=== PATIENT | male | born 1945 | race Caucasian/White ===

== ENCOUNTER 2019-09-09 14:26 | Emergency (ER) | payer OTHER, SELFPAY ==
[2019-09-09 14:35] VITALS: BP 144/89; PULSE 62; RESP 12; TEMP 37.1; O2SAT 97; BMI 29.0
[2019-09-09 15:00] VITALS: BP 172/87; PULSE 62; RESP 18; O2SAT 98
--- NOTE | 2019-09-09 15:09 | XR_ITS ---
WS: [id number] PORTABLE CHEST HISTORY: SOB COMPARISON: None available. Lungs are clear and well expanded. No pleural effusion or pneumothorax. Cardiac size: Normal. Mediastinum/Aorta: Normal mediastinum. No osseous abnormality seen. XR/XR chest 1V portable [id number] IMPRESSION: Unremarkable portable chest.
--- NOTE | 2019-09-09 15:09 | ECG_ITS ---
[facility] Test Date: 2019-09-09 Pat Name: Jem Garcia Department: Room: Gender: Male Bilingual Trainer: luz elena : 1945 Requested By: Hansa Locke Order Number: [id number] Caroline MD: Jose Car M.D. Measurements Intervals [place] Rate: 57 P: 12 MT: 164 QRS: -11 QRSD: 86 T: 20 QT: 399 QTc: 392 Interpretive Statements SINUS BRADYCARDIA No previous ECG available for comparison Electronically Signed On 09-10-2019 16:24:52 CDT by Jose Car M.D. [id number]
[2019-09-09 15:49] LABS: Basophils % 0.4 %; Eosinophils # 0.2 10^3/uL (0.0-0.8); Eosinophils % 2.2 %; Hematocrit 46.7 % (42.0-52.0); Hemoglobin 15.6 g/dL (11.7-16.6); Lymphocytes # 1.7 10^3/uL (0.8-4.8); Lymphocytes % 23.1 %; Mean Corpuscular HGB Conc 33.4 g/dL (30.0-36.0); Mean Corpuscular Hemoglobin 32.7 pg (28.0-34.0); Mean Corpuscular Volume 97.9 fL (80-94); Mean Platelet Volume 9.9 fL (7.4-10.4); Monocytes # 0.6 10^3/uL (0.2-0.9); Monocytes % 7.6 %; Neutrophils % 66.3 %; Nucleated Red Blood Cells % 0 %; Platelet Count 151 10^3/cmm (130-400); Red Blood Count 4.77 10^6/uL (4.1-5.3); Red Cell Distribution Width 12.3 % (12.1-15.1); White Blood Count 7.2 10^3/uL (4.0-10.0)
--- NOTE | 2019-09-09 16:03 | W.ED.SOB ---
HPI - SOB/Dyspnea General: Chief Complaint: Shortness of Breath/Dyspnea Stated Complaint: sob Time Seen by Provider: 09/09/19 15:14 History of Present Illness: HPI Narrative: 74-year-old male presents emergency room complaining of shortness of breath for the last months. States very mild he does not have any chest pain today and he usually does not at times he has had a very mild chest pain or discomfort with it. He has not had any fever he has had a little bit of cough but it has been not really significantly productive. He has had a little slight swelling in his legs. He has not had any history of coronary artery disease not recently had any respiratory symptoms not been around anybody with COVID that he knows of. States several years ago he had a stress test which was negative. Patient is quite convinced that this is all due to the atenolol that he takes. He was directed here by his primary care doctor. MD elicited complaint: shortness of breath and cough Pertinent past history: other (Hypertension) Onset (ago): month(s) (1) Timing: intermittent Severity: mild Exacerbating factors: nothing Relieving factors: nothing Associated symptoms: Reports no associated symptoms; Deny abdominal pain, chest pain, fever(s), nausea, orthopnea or vomiting Treatment prior to arrival: none Review of Systems Const: Denies: fever(s), chills, body aches, change in appetite, fatigue or malaise ENMT: Denies: throat pain, ear or mastoid pain, nasal discharge or nasal congestion Card: Denies: chest pain, edema, dyspnea on exertion or orthopnea Resp: Denies: dyspnea, productive cough or non-productive cough GI: Denies: abdominal pain, nausea, vomiting, hematemesis, coffee ground emesis, diarrhea, constipation, bloating, hematochezia or melena : Denies: flank pain, dysuria, urinary frequency or urinary urgency Skin/Breast: Denies: rash or pruritus PFSH ED PFSH: Medical History (Updated 09/09/19 @ 16:53 by Darron Hughes DO) BPH (benign prostatic hyperplasia) Hypertension Surgical History (Updated 09/09/19 @ 16:09 by Darron Hughes DO) No history of previous surgery Social History (Updated 09/09/19 @ 16:09 by Darron Hughes DO) Smoking and tobacco status: never smoked Alcohol intake: former Year of sobriety/quit date alcohol: 22 years Former alcohol use details: Heavy per patient Physical Exam Const: COMMON NORMALS: no acute distress GENERAL APPEARANCE: cooperative and comfortable ORIENTATION/CONSCIOUSNESS: Yes awake, Yes oriented to person, Yes oriented to place and Yes oriented to time HENMT: COMMON NORMALS: normocephalic, atraumatic, hearing grossly normal bilaterally, external ears normal and oropharynx normal HEAD & SCALP: normocephalic and atraumatic EXTERNAL EAR: Yes external ears normal Eye: COMMON NORMALS: Equal, round and reactive pupils present, EOMs intact bilaterally, conjunctivae normal and no scleral icterus CONJUNCTIVA: Yes conjunctivae normal PUPIL: Yes Equal, round and reactive pupils present Neck/C-Spine: COMMON NORMALS: full ROM, no lymphadenopathy, supple and no JVD Lymph: LYMPHATIC: no lymphadenopathy noted and no lymphedema noted Resp: COMMON NORMALS: normal respiratory effort, No retractions, No use of accessory muscles and clear to auscultation bilaterally AUSCULTATION: clear to auscultation bilaterally Cardio: COMMON NORMALS: no JVD, regular rate, regular rhythm and No murmurs present (Cardio) RATE: regular rate RHYTHM: regular rhythm GI: COMMON NORMALS: Soft to palpation and No hepatosplenomegaly present AUSCULTATION: Yes normoactive bowel sounds PALPATION: Yes Soft to palpation, No Tenderness to palpation present (GI), No Guarding due to palpation present (GI) and Yes No hepatosplenomegaly present Extremity: COMMON NORMALS: normal to inspection, capillary refill normal, no clubbing, cyanosis or edema, no calf tenderness and no pedal edema Neuro: SENSORIUM/ORIENTATION: Yes oriented to person, Yes oriented to place and Yes oriented to time Skin: COMMON NORMALS: no rashes or lesions noted GENERAL SKIN EXAM: no rashes or lesions noted Course Vital Signs: Vital signs: Vital Signs Temperature 98.7 F 09/09/19 14:35 Pulse Rate 64 09/09/19 18:12 Respiratory Rate 18 09/09/19 18:12 Blood Pressure 165/84 09/09/19 18:12 Pulse Oximetry 98 09/09/19 18:12 MDM - SOB/Dyspnea MDM Narrative: Medical decision making narrative: Serial enzymes negative. Will set up outpatient stress test. Patient had questions concerning blood pressure at this point his blood pressure is not significantly elevated make changes in the emergency room but did recommend him to follow-up with his primary care doctor he is wanting to get off the atenolol and recommend that he follow with his primary care doctor for adjustments on that. Lab Data: Labs: Lab Results 09/09/19 09/09/19 09/09/19 Range/Units 15:40 15:40 15:40 WBC 7.2 (4.0-10.0) 10^3/ uL RBC 4.77 (4.1-5.3) 10^6/u L Hgb 15.6 (11.7-16.6) g/dL Hct 46.7 (42.0-52.0) % MCV 97.9 H (80-94) fL MCH 32.7 (28.0-34.0) pg MCHC 33.4 (30.0-36.0) g/dL RDW 12.3 (12.1-15.1) % Plt Count 151 (130-400) 10^3/c mm MPV 9.9 (7.4-10.4) fL Neut % (Auto) 66.3 % Lymph % (Auto) 23.1 % Hart % (Auto) 7.6 % Eos % (Auto) 2.2 % Baso % (Auto) 0.4 % Neut # (Auto) 4.80 (1.8-7.7) 10^3/u L Lymph # (Auto) 1.7 (0.8-4.8) 10^3/u L Hart # (Auto) 0.6 (0.2-0.9) 10^3/u L Eos # (Auto) 0.2 (0.0-0.8) 10^3/u L Baso # (Auto) 0.0 (0.0-0.1) 10^3/u L Nucleated RBC % (a uto) 0 % Nucleated RBCs # 0.0 /100WBC Sodium 138 (136-145) mmol/L Potassium 4.1 (3.5-5.1) mmol/L Chloride 105 (98-107) mmol/L Carbon Dioxide 24 (22-29) mmol/L Anion Gap 13.1 (5-19) BUN 15 (8-23) mg/dL Creatinine 0.7 (0.7-1.2) mg/dL Glucose 95 (65-115) mg/dL Calculated Osmolal ity 282 L (285-295) mOsm/k g Calcium 8.8 (8.5-10.5) mg/dL Total Bilirubin 0.8 (0.15-1.2) mg/dL AST 28 (0-40) U/L ALT 43 H (0-41) U/L Alkaline Phosphata se 91 (40-130) IU/L Troponin T Baselin e 7 (0-15) ng/L Troponin T 120 Min [place] (0-15) ng/L Delta Troponin T (0-10) ABS# NT-Pro-B Natriuret Pep 104 (0-125) pg/mL Total Protein 6.6 (6.6-8.7) g/dL Albumin 4.3 (3.5-5.2) g/dL Globulin 2.3 (1.3-4.6) g/dL 09/09/19 Range/Units 17:35 WBC (4.0-10.0) 10^3/ uL RBC (4.1-5.3) 10^6/u L Hgb (11.7-16.6) g/dL Hct (42.0-52.0) % MCV (80-94) fL MCH (28.0-34.0) pg MCHC (30.0-36.0) g/dL RDW (12.1-15.1) % Plt Count (130-400) 10^3/c mm MPV (7.4-10.4) fL Neut % (Auto) % Lymph % (Auto) % Hart % (Auto) % Eos % (Auto) % Baso % (Auto) % Neut # (Auto) (1.8-7.7) 10^3/u L Lymph # (Auto) (0.8-4.8) 10^3/u L Hart # (Auto) (0.2-0.9) 10^3/u L Eos # (Auto) (0.0-0.8) 10^3/u L Baso # (Auto) (0.0-0.1) 10^3/u L Nucleated RBC % (a uto) % Nucleated RBCs # /100WBC Sodium (136-145) mmol/L Potassium (3.5-5.1) mmol/L Chloride (98-107) mmol/L Carbon Dioxide (22-29) mmol/L Anion Gap (5-19) BUN (8-23) mg/dL Creatinine (0.7-1.2) mg/dL Glucose (65-115) mg/dL Calculated Osmolal ity (285-295) mOsm/k g Calcium (8.5-10.5) mg/dL Total Bilirubin (0.15-1.2) mg/dL AST (0-40) U/L ALT (0-41) U/L Alkaline Phosphata se (40-130) IU/L Troponin T Baselin e (0-15) ng/L Troponin T 120 Min [place] 7.91 (0-15) ng/L Delta Troponin T 0.91 (0-10) ABS# NT-Pro-B Natriuret Pep (0-125) pg/mL Total Protein (6.6-8.7) g/dL Albumin (3.5-5.2) g/dL Globulin (1.3-4.6) g/dL Discharge Plan Discharge Patient Disposition: Home, Self-Care Clinical Impression: BOLIVAR (dyspnea on exertion), Hypertension Condition: Stable Prescriptions: No Action Apple Cider Vinegar Liquid 3 tsp PO BID RF: 0 Aspir-81 81 mg Tablet,Delayed Release (Dr/Ec) 81 mg PO DAILY RF: 0 atenolol 50 mg Tablet 25 mg PO DAILY RF: 0 garlic Tablet See Rx Instructions .ROUTE .COMPLEX RF: 0 PreserVision AREDS-2 [id number]-[id number]-mg Capsule 1 tab PO BID RF: 0 Fish Oil 1 cap PO BID RF: 0 Zantac 150 mg PO QPM RF: 0 Referrals: Jose Daniel Vazquez [Primary Care Provider] - Discharge Diet: Usual diet Discharge Activity: Limit activity as instructed Activity Restrictions/Additional Instructions: Case management will call to schedule sestamibi stress test Discharge Date/Time: 09/09/19 18:13 Coding Level of Care Code ED Mill Controller for [place] Fwd Exam Comprehensive
[2019-09-09 16:13] LABS: Troponin(5th) Baseline 7 ng/L (0-15)
[2019-09-09 16:22] LABS: Alanine Aminotransferase 43 U/L (0-41); Albumin Level 4.3 g/dL (3.5-5.2); Alkaline Phosphatase 91 IU/L (40-130); Anion Gap 13.1 (5-19); Aspartate Amino Transferase 28 U/L (0-40); Blood Urea Nitrogen 15 mg/dL (8-23); Calcium 8.8 mg/dL (8.5-10.5); Carbon Dioxide 24 mmol/L (22-29); Chloride 105 mmol/L (98-107); Creatinine Clr Calc Pharmacy 83.7472; Globulin 2.3 g/dL (1.3-4.6); Glucose 95 mg/dL (65-115); NT Pro B Type Natriuretic Pept 104 pg/mL (0-125); Osmolality Calculated 282 mOsm/kg (285-295); Potassium 4.1 mmol/L (3.5-5.1); Sodium 138 mmol/L (136-145); Total Bilirubin 0.8 mg/dL (0.15-1.2); Total Protein 6.6 g/dL (6.6-8.7)
[2019-09-09 16:45] VITALS: BP 157/84
--- NOTE | 2019-09-09 17:09 | ECG_ITS ---
[facility] Test Date: 2019-09-09 Pat Name: Jem Garcia Department: Room: Gender: Male Housing Inspectors: : 1945 Requested By: Hansa Locke Order Number: [id number] Caroline MD: Jose Car M.D. Measurements Intervals [place] Rate: 55 P: 40 WA: 168 QRS: 21 QRSD: 82 T: 49 QT: 411 QTc: 393 Interpretive Statements SINUS BRADYCARDIA Compared to ECG 09/09/2019 14:49:40 No significant changes Electronically Signed On 09-10-2019 16:30:42 CDT by Jose Car M.D. [id number]
[2019-09-09 17:56] LABS: Troponin 5 2HR 7.91 ng/L (0-15); Troponin 5 2HR Delta 0.91 ABS# (0-10)
[2019-09-09 18:12] VITALS: BP 165/84; PULSE 64; RESP 18; O2SAT 98
--- NOTE | 2019-09-11 13:19 | DCPLANNER ---
Addendum entered by Stacie Stinson 09/13/19 10:59: Patient has [facility] and will need to be seen at [facility]. residential case manager called [facility], spoke with Delma, gave her the patients information, supervisor case loading was told that patients information would be printed and reviewed. Clinic will call patient with appointment information. residential case manager called May with [facility], gave her patients information so a consult could be placed. Original Note: residential case manager had message to schedule an outpatient stress test for patient. residential case manager had order signed, and faxed order to centralized scheduling. residential case manager will call for appointment information.
--- NOTE | 2019-09-26 08:23 | DCPLANNER ---
Patient had a follow up appointment scheduled for 09.19.19 with [facility]. Patient did attend appointment.
== END 2019-09-09 18:13 | disposition home or self-care (01) ==
PROVIDERS: Physician Assistant; Emergency Provider Family Medicine; PCP Family Medicine
DX: R06.00 Dyspnea, unspecified (principal); I10 Essential (primary) hypertension; Z79.82 Long term (current) use of aspirin
CPT/HCPCS: 12345; 36415; 71045; 80053; 83880; 84484; 85025; 93005; 99282; 99283

== ENCOUNTER 2020-10-09 10:15 | Outpatient (CLI) | payer OTHER, SELFPAY ==
--- NOTE | 2020-10-09 10:33 | US_ITS ---
WS: [id number] ULTRASOUND ABDOMEN LIMITED CLINICAL INFORMATION: ELEVATED LIVER ENZYMES COMPARISON: None. FINDINGS: Liver Size: Mild hepatomegaly. Craniocaudal length: 15.3 cm. Echogenicity: Diffuse fatty infiltration Surface nodularity: None. Mass (size and location): None. Bile ducts Intrahepatic ducts: Normal. Common bile duct diameter: 0.4 cm. Gallbladder Normal. Gallstones: None. Gallbladder sludge: None. Gallbladder wall thickening: None. Pericholecystic fluid: None. Sonographic Baxter sign: Absent. Pancreas Normal as visualized. Right kidney: Incidental simple right renal cyst measuring 2.2 x 2.7 x 2.2 cm Hydronephrosis: None. Size: 11.1 cm x 4.4 cm x 5.7 cm. Abdominal aorta and IVC Visualized portions are normal. Ascites: None. US/US abdomen limited [id number] IMPRESSION: 1. Hepatomegaly with diffuse fatty infiltration. 2. Normal gallbladder. Normal common bile duct. 3. No hydronephrosis in right kidney. 4. Incidental simple right renal cyst measuring 2.2 x 2.7 x 2.2 cm
== END 2020-10-09 10:16 | disposition home or self-care (01) ==
PROVIDERS: PCP Family Medicine; Visit Provider Family Medicine
DX: R94.5 Abnormal results of liver function studies (principal); R16.0 Hepatomegaly, not elsewhere classified; K76.0 Fatty (change of) liver, not elsewhere classified; N28.1 Cyst of kidney, acquired
CPT/HCPCS: 76705

== ENCOUNTER → 2021-03-09 13:45 | Outpatient (BNVA) | payer OTHER, SELFPAY | PROVIDERS: PCP Family Medicine; Visit Provider Family Medicine | DX: I10 Essential (primary) hypertension (principal); E55.9 Vitamin D deficiency, unspecified; Z13.220 Encounter for screening for lipoid disorders; Z13.6 Encounter for screening for cardiovascular disorders | CPT/HCPCS: 80053; 80061; 82652; 86803 ==

== ENCOUNTER → 2021-03-17 17:10 | Outpatient (BNVA) | payer OTHER, SELFPAY | PROVIDERS: PCP Family Medicine; Visit Provider Family Medicine | DX: I10 Essential (primary) hypertension (principal); Z13.220 Encounter for screening for lipoid disorders; Z13.6 Encounter for screening for cardiovascular disorders | CPT/HCPCS: 80053; 80061 ==

== ENCOUNTER → 2021-11-10 15:23 | Outpatient (BNVA) | payer OTHER, SELFPAY | PROVIDERS: PCP Family Medicine; Visit Provider Family Medicine | DX: J44.9 Chronic obstructive pulmonary disease, unspecified (principal); I10 Essential (primary) hypertension; J30.9 Allergic rhinitis, unspecified; E55.9 Vitamin D deficiency, unspecified; K21.9 Gastro-esophageal reflux disease without esophagitis; N40.1 Benign prostatic hyperplasia with lower urinary tract symptoms; N52.9 Male erectile dysfunction, unspecified; E78.2 Mixed hyperlipidemia; Z12.5 Encounter for screening for malignant neoplasm of prostate | CPT/HCPCS: 80053; 80061; 84153; 85025 ==

== ENCOUNTER → 2022-10-20 14:17 | Outpatient (BNVA) | payer OTHER, SELFPAY | PROVIDERS: PCP Family Medicine; Visit Provider Family Medicine | DX: E55.9 Vitamin D deficiency, unspecified (principal); N40.1 Benign prostatic hyperplasia with lower urinary tract symptoms; Z12.5 Encounter for screening for malignant neoplasm of prostate; I10 Essential (primary) hypertension; E78.2 Mixed hyperlipidemia; J44.9 Chronic obstructive pulmonary disease, unspecified; B19.20 Unspecified viral hepatitis C without hepatic coma | CPT/HCPCS: 80053; 80061; 82652; 83721; 83735; 84153; 85025; 86803; 87522 ==

== ENCOUNTER 2023-01-23 11:51 | Outpatient (CLI) | payer OTHER, SELFPAY ==
--- NOTE | 2023-01-23 13:15 | USCV_ITS ---
Jem Garcia Age: 78 Gender: M : 1945 Exam Date: 01/23/2023 12:17 Ordering Phys: Mela Vazquez MD Technologist: CT Exam Location: [facility] [place] Indication: Essential HTN BP: 118 / 80 HR: 62 Rhythm: Sinus Technical Quality: Adequate MEASUREMENTS (Male / Female) Normal Values 2D ECHO LVOT Diameter 2.0 cm LV Ejection Fraction MOD 2C 64.2 % LV Ejection Fraction 2C AL 62.6 % LA Diameter 4.2 cm Aorta at Sinotubular Diameter 3.1 cm M-MODE Aortic Annulus Diameter 2.8 cm LA Ao Ratio MM 1.5 MV E Point Septal Separation 0.9 cm DOPPLER AV Peak Velocity 118.0 cm/s LVOT Peak Velocity 99.0 cm/s AV Area Cont Eq vti 3.7 cm squared AV Area Cont Eq pk 2.7 cm squared MV E' Velocity 8.0 cm/s TR Peak Velocity 233.0 cm/s TR Peak Gradient 21.7 mmHg TV Peak E Velocity 68.0 cm/s Right Atrial Pressure 3.0 mmHg Pulmonary Artery Systolic Pressu 24.7 mmHg PV Peak Velocity 106.0 cm/s FINDINGS Left Ventricle Normal left ventricular size, systolic function with no regional wall motion abnormalities. Left ventricular ejection fraction is estimated at 60 %. Normal diastolic function. Right Ventricle Normal right ventricular size and systolic function. Right ventricular systolic pressure 24.7 mmHg. Right Atrium Normal right atrial size. Left Atrium Normal left atrial size. Mitral Valve Structurally normal mitral valve. No mitral valve stenosis. No mitral valve regurgitation. Aortic Valve Structurally normal trileaflet aortic valve. No aortic valve stenosis. No aortic valve regurgitation. Tricuspid Valve Structurally normal tricuspid valve. No tricuspid valve stenosis. Trace tricuspid valve regurgitation. Pulmonic Valve Pulmonic valve not well visualized. No pulmonary valve stenosis. No pulmonary valve regurgitation. Pericardium No pericardial effusion. Aorta Normal size aortic root and proximal ascending aorta. IVC Inferior vena cava not visualized. CONCLUSIONS 1. Normal left ventricular size, systolic function and wall thickness, with no regional wall motion abnormalities. Left ventricular ejection fraction is estimated at 60 %. Normal diastolic function. 2. Normal pulmonary artery pressure. 3. No significant valvular abnormality. Sharron Escoto MD (Electronically Signed) Final Date: 27 January 2023 12:43 S
== END 2023-01-23 11:52 | disposition home or self-care (01) ==
LOC: RAD 11:54
PROVIDERS: PCP Family Medicine; Visit Provider Family Medicine
DX: I10 Essential (primary) hypertension (principal); R60.0 Localized edema
CPT/HCPCS: 93306

== ENCOUNTER → 2023-03-27 10:01 | Outpatient (BNVA) | payer OTHER, SELFPAY | PROVIDERS: PCP Family Medicine; Referring Provider Family Medicine; Visit Provider Internal Medicine Cardiovascular Disease | DX: I10 Essential (primary) hypertension (principal); E78.2 Mixed hyperlipidemia; K70.0 Alcoholic fatty liver; R60.9 Edema, unspecified; Z87.891 Personal history of nicotine dependence | CPT/HCPCS: 99203 ==

== ENCOUNTER → 2023-10-18 14:25 | Outpatient (BNVA) | payer OTHER, SELFPAY | PROVIDERS: PCP Family Medicine; Visit Provider Family Medicine | DX: I10 Essential (primary) hypertension; Z12.5 Encounter for screening for malignant neoplasm of prostate | CPT/HCPCS: 80053; 80061; 83880; 85651; 86038; 86140; G0103 ==

== ENCOUNTER → 2024-02-08 08:05 | Outpatient (BNVA) | payer OTHER, SELFPAY | PROVIDERS: PCP Family Medicine; Referring Provider Family Medicine; Visit Provider Specialist | DX: R20.0 Anesthesia of skin (principal); G56.03 Carpal tunnel syndrome, bilateral upper limbs | CPT/HCPCS: 95911 ==

== ENCOUNTER → 2024-07-17 09:37 | Outpatient (BNVA) | payer OTHER, SELFPAY | PROVIDERS: PCP Family Medicine; Visit Provider Student in an Organized Health Care Education/Training Program | DX: G56.03 Carpal tunnel syndrome, bilateral upper limbs (principal) | CPT/HCPCS: 73130; 99204 ==

== ENCOUNTER → 2024-10-15 13:08 | Outpatient (BNVA) | payer OTHER, SELFPAY | PROVIDERS: PCP Family Medicine; Visit Provider Family Medicine | DX: I10 Essential (primary) hypertension (principal); E78.2 Mixed hyperlipidemia; K70.0 Alcoholic fatty liver; Z12.5 Encounter for screening for malignant neoplasm of prostate; E55.9 Vitamin D deficiency, unspecified; R53.83 Other fatigue | CPT/HCPCS: 80053; 80061; 82652; 85025; G0103 ==

== ENCOUNTER → 2024-10-16 10:11 | Outpatient (BNVA) | payer OTHER, SELFPAY | PROVIDERS: PCP Family Medicine; Visit Provider Student in an Organized Health Care Education/Training Program | DX: G56.03 Carpal tunnel syndrome, bilateral upper limbs (principal) | CPT/HCPCS: 99214 ==

== ENCOUNTER 2024-11-08 08:16 | Outpatient (CLI) | payer OTHER, SELFPAY ==
--- NOTE | 2024-11-08 08:45 | US_ITS ---
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 Normal size liver. Coarse echotexture and attenuation from hepatic steatosis. The entire liver is not well seen. Portal Vein: Normal hepatopetal flow with monophasic waveform. Gallbladder: Normally distended gallbladder with no stones or wall thickening. CBD: 0.3 cm Pancreas: Not visualized. Right kidney: 11.2 cm x 4.6 x 5.4 cm. Cortex:1.2 cm. Normal size kidney. No hydronephrosis. Small cluster of cysts mid kidney 3.0 x 1.9 x 2.5 cm. No solid mass. Left kidney: 11.3 cm x 4.6 cm x 6.1 cm. Cortex: 1.2 cm. Normal size kidney. No hydronephrosis. Several cortical cysts are identified. The largest measures 1.3 x 1.7 x 1.4 cm in the superior pole. Spleen: 9.0 cm. Normal size and echogenicity. Aorta and IVC: Unremarkable abdominal aorta and IVC. US/US abdomen complete* [id number] Impression: 1. Normal size liver with moderate hepatic steatosis. 2. Negative gallbladder. 3. Normal size kidneys with bilateral renal cysts.
== END 2024-11-08 08:17 | disposition home or self-care (01) ==
LOC: RAD 08:19
PROVIDERS: PCP Family Medicine; Visit Provider Family Medicine
DX: F10.21 Alcohol dependence, in remission (principal); K70.0 Alcoholic fatty liver
CPT/HCPCS: 76700

== ENCOUNTER 2024-11-22 06:04 | Day surgery (SDC) | payer OTHER, SELFPAY ==
[2024-11-22] VITALS (7 sets, daily range): BP systolic 102–152; BP diastolic 58–83; PULSE 62–74; RESP 14–18; TEMP 35.9–36.8; O2SAT 90–97; BMI 27.4
--- NOTE | 2024-11-22 06:10 | ANES.PREANE2 ---
Pre-Anesthetic Assessment Height/Weight: Height 5 ft 6 in Preop Diagnosis: Carpal tunnel syndrome Operation Date: 11/22/24 07:00 Proposed Procedures p LEFT Carpal Tunnel Release(Left) - Rangel Gutiérrez DO Was Beta Margarito taken within 24 hours: N/A Was Clonidine taken within 24 hours: N/A Social No alcohol and No tobacco Exam alert, oriented x 3, clear to auscultation bilaterally and regular rate & rhythm Airway Submandibular: within normal limits Cervical ROM: within normal limits Mallampati: Class III Dentition: full Anesthetic Plan ASA status: 3 Anesthesia: MAC Other: No prior issues with anesthesia NPO since yesterday evening History of GERD, COPD Hypertension on amlodipine. Preop BP 152/83 Labs reviewed from 10/15/2024 and acceptable for procedure today Echo 2022 showing EF of 60% with no RWMA Plan for MAC anesthesia with local via surgeon Medications/Allergies Home Medications ?Medication ?Instructions ?Recorded ?Confirmed ?Last Taken ?Type Apple Cider Vinegar Liquid 3 tsp PO BID 09/09/19 11/22/24 Unknown History garlic 2 tab PO DAILY 09/09/19 11/22/24 11/21/24 History omega 0-dns-hqv-fish oil 1,000 mg 1 cap PO BID 90 days #180 caps 10/20/22 11/22/24 Unknown Rx (120 mg-180 mg) capsule (Fish Oil) vit C 250 mg-vit E 90 mg-zinc 40 1 tab PO BID 90 days #180 caps 10/18/23 11/22/24 11/21/24 Rx mg-copper 1 pg-exknwh-cvjtxx capsule (PreserVision AREDS-2) docusate sodium 100 mg capsule 100 mg PO BID #180 caps 03/18/24 11/22/24 11/21/24 Rx albuterol sulfate 90 mcg/actuation 2 puff inhalation Q6H PRN 10/15/24 11/22/24 Unknown Rx aerosol inhaler shortness of breath or wheezing #8.5 grams amlodipine 5 mg tablet 5 mg PO BID 90 days #180 tabs 10/15/24 11/22/24 11/22/24 Rx cetirizine 10 mg capsule 10 mg PO DAILY 90 days #90 caps 10/15/24 11/22/24 11/21/24 Rx cholecalciferol (vitamin D3) 25 25 mcg PO DAILY 90 days #90 tabs 10/15/24 11/22/24 11/21/24 Rx mcg (1,000 unit) tablet clobetasol 0.05 % topical cream 1 applic topical DAILY #60 grams 10/15/24 11/22/24 11/21/24 Rx ibuprofen 200 mg capsule 200 mg PO Q6H PRN Pain 10/15/24 11/22/24 Unknown History turmeric 400 mg capsule 400 mg PO DAILY 10/15/24 11/22/24 11/21/24 History vitamin K2 90 mcg capsule 90 mcg PO DAILY 10/15/24 11/22/24 11/21/24 History sildenafil 100 mg tablet 100 mg PO DIRECTED 11/21/24 11/22/24 Unknown History Allergies Allergy/AdvReac Type Severity Reaction Status Date / Time No Known Allergies Allergy Verified 10/16/24 10:34 [facility] Anesthesia Medical History Edema Hypertension BPH (benign prostatic hyperplasia) Surgical History No history of previous surgery Family History Grandfather Cancer rectal cancer Social History Smoking and tobacco/nicotine status: unknown if used tobacco/nicotine Alcohol intake: former Year of sobriety/quit date alcohol: 22 years Former alcohol use details: Heavy per patient Data Anesthesia Cardiac Studies: Echocardiogram 01/23/23
--- NOTE | 2024-11-22 06:46 | W.PM.OPSFHP ---
Same Day Surgery H&P Indication for Procedure/HPI DATE OF PROCEDURE: November 22, 2024 CHIEF COMPLAINT/INDICATIONFOR SURGICAL PROCEDURE: Left carpal tunnel syndrome PREOP DIAGNOSIS: Left carpal tunnel syndrome PLANNED PROCEDURE: Operation Date: 11/22/24 07:00 Proposed Procedures p LEFT Carpal Tunnel Release(Left) - Rangel Gutiérrez, DO Medications/Allergies* Home Medications ?Medication ?Instructions ?Recorded ?Confirmed ?Type Apple Cider Vinegar Liquid 3 tsp PO BID 09/09/19 11/22/24 History garlic 2 tab PO DAILY 09/09/19 11/22/24 History ibuprofen 200 mg capsule 200 mg PO Q6H PRN Pain 10/15/24 11/22/24 History turmeric 400 mg capsule 400 mg PO DAILY 10/15/24 11/22/24 History vitamin K2 90 mcg capsule 90 mcg PO DAILY 10/15/24 11/22/24 History sildenafil 100 mg tablet 100 mg PO DIRECTED 11/21/24 11/22/24 History Allergies/Adverse Reactions Allergy/AdvReac Type Severity Reaction Status Date / Time No Known Allergies Allergy Verified 10/16/24 10:34 Pertinent History/Comorbid Conditions* Medical History (Updated 10/15/24 @ 13:28 by Mela Vazquez MD) Edema Hypertension BPH (benign prostatic hyperplasia) Surgical History (Updated 03/09/21 @ 13:31 by Mela Vazquez MD) No history of previous surgery Family History (Updated 03/09/21 @ 13:21 by Bertha Mixon CMA) Cancer Grandfather rectal cancer Social History Smoking and tobacco/nicotine status: unknown if used tobacco/nicotine Alcohol intake: former Year of sobriety/quit date alcohol: 22 years Former alcohol use details: Heavy per patient Pertinent Exam Findings alert, oriented x 3, operative site marked and procedure specific exam findings Please refer to detailed orthopedic examination on 10/16/2024 listed below: left Carpal Tunnel Exam: Normal C-spine ROM, No pain. Negative Spurling's Negative Tinel's @ shoulder, Normal ROM Negative Tinel's @ elbow, Normal ROM Positive median compression test. Positive Tinel's Positive Phalen's Thenar weakness Subtle atrophy noted. No Intrinsic atrophy noted bilaterally. Negative [facility] grind test Recommendations Risks and benefits of procedure reviewed and Patient/family agree to proceed Surgery/Procedure today Other Plans: Plan to proceed to the OR today for left carpal tunnel release patient understands the ins and outs procedure the risks and benefits complication alternatives surgical nonsurgical treatment options. Understanding risk of surgery patient like to proceed with surgical invention. All questions answered at this time. Coding Level of Care Code Acute Code for Chg Fwsujit
[2024-11-22] MEDS: acetaminophen 1,000 MG/100 ML PIGGYBACK 400 MG IV (07:03)
[2024-11-22] MEDS: ceFAZolin 2,000 MG in sodium chloride 0.9% (plus) 50 ML 100 MG IV (07:24)
[2024-11-22] MEDS: ROPivacaine 0.5% SDV 30 mL 150 MG INJECTION (07:43)
[2024-11-22] MEDS: lidocaine-epi 1% 20 mL INJ INJECTION (07:43)
--- NOTE | 2024-11-22 07:44 | P.OP_ITS ---
Operative Report Date of procedure: November 22, 2024 Surgeon: Rangel Gutiérrez DO Procedure: Preop Diagnosis: Left Carpal Tunnel Syndrome Post-op diagnosis: Same Procedure done: 1. Left carpal tunnel release Surgeon: Rangel Gutiérrez DO Anesthesia: MAC (Local) Estimated blood loss: 2 mL Tourniquet time 4 minutes IV fluids: See anesthesia record Complications: None Findings: See operative report narrative Condition: stable Disposition: same day Brief History: Patient is a pleasant 79 year-old male with left carpal tunnel syndrome. Patient has been worked up in the outpatient setting findings and physical examination consistent with this. Patient nerve conduction studies consistent with carpal tunnel syndrome. We detailed out patient's risk benefits complication alternatives with surgical and nonsurgical treatment options. Through shared decision making, patient agrees to proceed with surgical intervention of the left carpal tunnel release . Patient understands and agrees with current plan. All questions answered. Patient elects to proceed with surgical intervention. Procedure: Patient seen and evaluated in the preoperative holding area. Consent was reviewed and signed with patient. Correct extremity was marked. Patient was seen evaluated by the anesthesia department once cleared for surgery was brought back to the operative suite. Patient was kept on [facility] in supine position all bony prominences were well-padded patient properly secured to the bed. Left upper extremity was then placed onto an armboard. A nonsterile tourniquet was applied to the left upper arm. Patient underwent anesthesia per the anesthesia department. Patient's left upper extremity was then prepped and draped in standard orthopedic fashion. Final timeout performed. Patient received appropriate preoperative antibiotics. Under sterile aseptic technique patient received local anesthesia over the preplanned carpal tunnel incision site. Esmarch was used to exsanguinate the left upper extremity and tourniquet was insufflated to 250 mmHg. A standard mini open left carpal tunnel incision was made. Starting distally at Bar's cardinal line in line with the fourth ray extending proximally distal to the wrist crease centered over the carpal tunnel. Sharp scalpel incision was made through skin and subcutaneous tissue. Self-retaining retractor was placed and the palmar fascia was identified. This was then split longitudinally and direct visualization of the transverse carpal ligament was then made. I then utilizing scalpel feathered through the transverse carpal ligament until I entered the floor of the transverse carpal tunnel ligament into the carpal tunnel. Next I switched to dissection scissors and completed my release of the transverse carpal ligament distally with care to protect the recurrent motor branch. I completely released into the palmar fat and until no entrapment was noted distally. Care was made to protect the superficial palmar arch during my distal dissection. Next, nasal speculum placed proximally for retraction of soft tissue on top of the Transverse carpal ligament. Next the contents of the carpal tunnel where protected and and subsequently utilizing dissection scissors under loupe magnification completely released the transverse carpal ligament proximally into the antebrachial fascia. Care was made to protect the palmar cutaneous branch by keeping my scissors curved ulnarly. Once completely released, I then placed my [place] and had appropriate decompression of the carpal tunnel proximally as well as distally. I then inspected the contents of the carpal tunnel which showed an hourglass shape of the median nerve showing its compression. No masses were noted. Tendons appeared healthy. Wound was then thoroughly irrigated. Tourniquet deflated. Hemostasis satisfactory with bipolar electrocautery. I then closed the incision with interrupted nylon stitches. Xeroform 4 x 4's and a bulky soft dressing was applied to the left upper extremity. Patient was then awakened from anesthesia and taken to PACU in stable condition. Patient tolerated procedure without complications. Disposition: Patient taken to PACU in stable condition recovering well. Dressing clean dry and intact. Patient will receive appropriate discharge instructions as well as pain medication postoperatively. Patient to follow-up with me in the office in 2 weeks. They understand they may be weightbearing as tolerated to the left hand but recommend limit heavy lifting. Patient should keep incision clean dry and intact. Patient understands if any questions or con cerns may contact the office.
--- NOTE | 2024-11-22 07:44 | P.BOP_ITS ---
Date of Procedure: 11/22/2024 Surgeon: Rangel Gutiérrez DO Corporate Director Talent Assessment(s): None Procedure(s) performed: Left carpal tunnel release Findings of the procedure(s): Underwent procedure as planned without issues or complications taken recovery in stable condition. Estimated blood loss: 2 mL Specimen(s) removed: None Post-operative diagnosis: Left carpal tunnel syndrome
--- NOTE | 2024-11-22 09:20 | ANE.PACU2 ---
Inpatient post-anesthesia follow up: Airway intact: Yes Vital signs: Temperature 96.6 F Pulse Rate 70 Respiratory Rate 17 Blood Pressure 121/68 Pulse Oximetry 97 Oxygen Delivery Me thod Room Air Oxygen Flow Rate 2 Fraction of Inspir ed Oxygen Hydration adequate: Yes Nausea and vomiting: No Pain level: 1 Mental status: Baseline
== END 2024-11-22 09:20 | disposition home or self-care (01) ==
PROVIDERS: PCP Family Medicine; Visit Provider Student in an Organized Health Care Education/Training Program
PROC: (CPT 64721; principal; 2024-11-22 07:00)
DX: G56.02 Carpal tunnel syndrome, left upper limb (principal); I10 Essential (primary) hypertension; K21.9 Gastro-esophageal reflux disease without esophagitis; J44.9 Chronic obstructive pulmonary disease, unspecified
CPT/HCPCS: 64721; J0131; J0690; J2250; J2704; J2795; J3010; J7030; J9999

== ENCOUNTER → 2024-12-06 08:34 | Outpatient (BNVA) | payer OTHER, SELFPAY | PROVIDERS: PCP Family Medicine; Visit Provider Physician Assistant | DX: Z98.890 Other specified postprocedural states (principal); Z09 Encounter for follow-up examination after completed treatment for conditions other than malignant neoplasm | CPT/HCPCS: 99214 ==

== ENCOUNTER 2025-01-14 06:22 | Day surgery (SDC) | payer OTHER, SELFPAY ==
[2025-01-14] VITALS (8 sets, daily range): BP systolic 92–147; BP diastolic 56–94; PULSE 63–88; RESP 16–20; TEMP 36.2–36.8; O2SAT 90–96; BMI 29.0
--- NOTE | 2025-01-14 06:58 | W.PM.OPSFHP ---
Same Day Surgery H&P Indication for Procedure/HPI DATE OF PROCEDURE: January 14, 2025 CHIEF COMPLAINT/INDICATIONFOR SURGICAL PROCEDURE: Right carpal tunnel syndrome PREOP DIAGNOSIS: Right carpal tunnel syndrome PLANNED PROCEDURE: Operation Date: 01/14/25 08:00 Proposed Procedures p Carpal Tunnel Release(Right) - Rangel Gutiérrez, DO Medications/Allergies* Home Medications ?Medication ?Instructions ?Recorded ?Confirmed ?Type Apple Cider Vinegar Liquid 3 tsp PO BID 09/09/19 12/06/24 History garlic 2 tab PO DAILY 09/09/19 01/14/25 History ibuprofen 200 mg capsule 200 mg PO Q6H PRN Pain 10/15/24 01/14/25 History turmeric 400 mg capsule 400 mg PO DAILY 10/15/24 01/14/25 History vitamin K2 90 mcg capsule 90 mcg PO DAILY 10/15/24 01/14/25 History sildenafil 100 mg tablet 100 mg PO DIRECTED 11/21/24 01/14/25 History Allergies/Adverse Reactions Allergy/AdvReac Type Severity Reaction Status Date / Time No Known Allergies Allergy Verified 10/16/24 10:34 Pertinent History/Comorbid Conditions* Medical History (Updated 12/06/24 @ 09:03 by EDSON Almeida) Edema Hypertension BPH (benign prostatic hyperplasia) Surgical History (Updated 12/06/24 @ 09:03 by EDSON Almeida) No history of previous surgery Family History (Updated 03/09/21 @ 13:21 by Bertha Mixon CMA) Cancer Grandfather rectal cancer Social History Smoking and tobacco/nicotine status: never used tobacco/nicotine Alcohol intake: former 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 No erythema, warmth or purulent drainage seen. Sutures are intact and no wound dehiscence seen. Full range of motion in fingers with no mechanical locking or catching. Fingers are warm and well-perfused. Right Hand exam-positive Tinel's and positive Phalen's test. mild thenar atrophy and thenar muscle weakness. Full range of motion in fingers and wrist and fingers are warm and well-perfused with normal cap refill under 2 seconds. Radial pulse 2+, no intrinsic muscle weakness noted. Right Elbow exam-negative Tinel's test Recommendations Risks and benefits of procedure reviewed and Patient/family agree to proceed Surgery/Procedure today Other Plans: Patient here today to proceed for right carpal tunnel release. Patient understands the ins and outs procedure the risk benefits complication alternative surgical nonsurgical treatment options. Understand risk of surgery patient elects proceed with surgical invention. All questions answered at this time. Coding Level of Care Code Acute Code for Chg Fwd
[2025-01-14] MEDS: acetaminophen 1,000 MG/100 ML PIGGYBACK 400 MG IV (07:06)
--- NOTE | 2025-01-14 07:11 | ANES.PREANE2 ---
Pre-Anesthetic Assessment Height/Weight: Height 1.68 m Weight 81.647 kg Temp Pulse Resp BP Pulse Ox O2 Del Method 98.2 F 88 18 147/94 96 Room Air 01/14/25 06:51 01/14/25 06:51 01/14/25 06:51 01/14/25 06:51 01/14/25 06:51 01/14/25 06:51 Preop Diagnosis: Right carpal tunnel syndrome Operation Date: 01/14/25 08:00 Proposed Procedures p Carpal Tunnel Release(Right) - Rangel Gutiérrez DO Familial anesthetic complications: None Was Beta Margarito taken within 24 hours: N/A Was Clonidine taken within 24 hours: N/A Last intake: Intake Last Liquid Date 01/13/25 Last Liquid Time 22:00 Last Solid Date 01/13/25 Last Solid Time 17:00 Social No alcohol and No tobacco Exam alert, oriented x 3, clear to auscultation bilaterally and regular rate & rhythm Airway Mallampati: Class II Dentition: full Pulmonary Chronic Obstructive Pulmonary Disease CV/HEM Hypertension GI Gastroesophageal Reflux Disease Anesthetic Plan ASA status: 3 Anesthesia: MAC Risk of > 500 ml blood loss (7ml/kg in children): No Medications/Allergies Home Medications ?Medication ?Instructions ?Recorded ?Confirmed ?Last Taken ?Type Apple Cider Vinegar Liquid 3 tsp PO BID 09/09/19 12/06/24 Unknown History garlic 2 tab PO DAILY 09/09/19 01/14/25 01/14/25 History omega 0-gwt-jea-fish oil 1,000 mg 1 cap PO BID 90 days #180 caps 10/20/22 01/14/25 Unknown Rx (120 mg-180 mg) capsule (Fish Oil) vit C 250 mg-vit E 90 mg-zinc 40 1 tab PO BID 90 days #180 caps 10/18/23 01/14/25 01/14/25 Rx mg-copper 1 [id number] capsule (PreserVision AREDS-2) docusate sodium 100 mg capsule 100 mg PO BID #180 caps 03/18/24 01/14/25 01/14/25 Rx albuterol sulfate 90 mcg/actuation 2 puff inhalation Q6H PRN 10/15/24 01/14/25 Unknown Rx aerosol inhaler shortness of breath or wheezing #8.5 grams amlodipine 5 mg tablet 5 mg PO BID 90 days #180 tabs 10/15/24 01/14/25 01/14/25 Rx cetirizine 10 mg capsule 10 mg PO DAILY 90 days #90 caps 10/15/24 01/14/25 01/14/25 Rx cholecalciferol (vitamin D3) 25 25 mcg PO DAILY 90 days #90 tabs 10/15/24 01/14/25 01/14/25 Rx mcg (1,000 unit) tablet clobetasol 0.05 % topical cream 1 applic topical DAILY #60 grams 10/15/24 12/06/24 11/21/24 Rx ibuprofen 200 mg capsule 200 mg PO Q6H PRN Pain 10/15/24 01/14/25 Unknown History turmeric 400 mg capsule 400 mg PO DAILY 10/15/24 01/14/25 11/21/24 History vitamin K2 90 mcg capsule 90 mcg PO DAILY 10/15/24 01/14/25 01/14/25 History sildenafil 100 mg tablet 100 mg PO DIRECTED 11/21/24 01/14/25 Unknown History Allergies Allergy/AdvReac Type Severity Reaction Status Date / Time No Known Allergies Allergy Verified 10/16/24 10:34 [facility] Anesthesia Medical History (Updated 12/06/24 @ 09:03 by EDSON Almeida) Edema Hypertension BPH (benign prostatic hyperplasia) Surgical History (Updated 12/06/24 @ 09:03 by EDSON Almeida) No history of previous surgery Family History Grandfather Cancer rectal cancer Social History Smoking and tobacco/nicotine status: never used tobacco/nicotine Alcohol intake: former Year of sobriety/quit date alcohol: 22 years Former alcohol use details: Heavy per patient Data Anesthesia Cardiac Studies: Echocardiogram 01/23/23
[2025-01-14] MEDS: ceFAZolin 2,000 MG in sodium chloride 0.9% (plus) 50 ML 100 MG IV (07:46)
[2025-01-14] MEDS: lidocaine-epi 1% 20 mL INJ 5 ML INJECTION (08:05)
[2025-01-14] MEDS: ROPivacaine 0.5% SDV 30 mL 25 MG INJECTION (08:06)
--- NOTE | 2025-01-14 08:12 | P.BOP_ITS ---
Date of Procedure: 01/14/2025 Surgeon: Rangel Gutiérrez DO Hydrography Teacher(s): None Procedure(s) performed: Right carpal tunnel release Findings of the procedure(s): Underwent procedure as planned without issues or complications Estimated blood loss: 5 mL Specimen(s) removed: None Post-operative diagnosis: Right carpal tunnel release
--- NOTE | 2025-01-14 08:14 | P.OP_ITS ---
Operative Report Date of procedure: January 14, 2025 Surgeon: Rangel Gutiérrez DO Procedure: Preop Diagnosis: Right Carpal Tunnel Syndrome Post-op diagnosis: Same Procedure done: 1. Right carpal tunnel release Surgeon: Rangel Gutiérrez DO Anesthesia: MAC (Local) Estimated blood loss: 3 mL Tourniquet time 5 minutes IV fluids: See anesthesia record Complications: None Findings: See operative report narrative Condition: stable Disposition: same day Brief History: Patient is a pleasant 80 year-old male with right carpal tunnel syndrome. Patient has been worked up in the outpatient setting findings and physical exam ination consistent with this. Patient nerve conduction studies consistent with carpal tunnel syndrome. We detailed out patient's risk benefits complication alternatives with surgical and nonsurgical treatment options. Through shared decision making, patient agrees to proceed with surgical intervention of the right carpal tunnel release . Patient understands and agrees with current plan. All questions answered. Patient elects to proceed with surgical intervention with carpal tunnel release. Procedure: Patient seen and evaluated in the preoperative holding area. Consent was reviewed and signed with patient. Correct extremity was marked. Patient was seen evaluated by the anesthesia department once cleared for surgery was brought back to the operative suite. Patient was kept on [facility] in supine position all bony prominences were well-padded patient properly secured to the bed. Right upper extremity was then placed onto an armboard. A nonsterile tourniquet was applied to the Right upper arm. Patient underwent anesthesia per the anesthesia department. Patient's Right upper extremity was then prepped and draped in standard orthopedic fashion. Final timeout performed. Patient received appropriate preoperative antibiotics. Under sterile aseptic technique patient received local anesthesia over the preplanned carpal tunnel incision site. Esmarch was used to exsanguinate the Right upper extremity and tourniquet was insufflated to 250 mmHg. A standard mini open Right carpal tunnel incision was made. Starting distally at Bar's cardinal line in line with the fourth ray extending proximally distal to the wrist crease centered over the carpal tunnel. Sharp scalpel incision was made through skin and subcutaneous tissue. Self-retaining retractor was placed and the palmar fascia was identified. This was then split longitudinally and direct visualization of the transverse carpal ligament was then made. I then utilizing scalpel feathered through the transverse carpal ligament until I entered the floor of the transverse carpal tunnel ligament into the carpal tunnel. Next I switched to dissection scissors and completed my release of the transverse carpal ligament distally with care to protect the recurrent motor branch. I completely released into the palmar fat and until no entrapment was noted distally. Care was made to protect the superficial palmar arch during my distal dissection. Next I utilized a nasal speculum placed on top of the transverse carpal ligament and utilize this to retract the subcutaneous fat and tissue and under direct loupe magnification was able to identify the transverse carpal ligament. Next I then protected the contents of the carpal tunnel and subsequently utilizing dissection scissors under loupe magnification completely released the transverse carpal ligament proximally into the antebrachial fascia. Care was made to protect the palmar cutaneous branch by keeping my scissors curved ulnarly. Once completely released, I then placed my [place] and had appropriate decompression of the carpal tunnel proximally as well as distally. I then inspected the contents of the carpal tunnel which showed an hourglass shape of the median nerve showing its compression. No masses were noted. Tendons appeared healthy. Wound was then thoroughly irrigated. Tourniquet deflated. Hemostasis satisfactory with bipolar electrocautery. I then closed the incision with interrupted nylon stitches. Xeroform 4 x 4's and a bulky soft dressing was applied. Patient was then awakened from anesthesia and taken to PACU in stable condition. Patient tolerated procedure without complications. Disposition: Patient taken to PACU in stable condition recovering well. Dressing clean dry and intact. Patient will receive appropriate discharge instructions as well as pain medication postoperatively. Patient to follow-up with me in the office in 2 weeks. They understand they may be weightbearing as tolerated to the right hand. Patient should keep incision clean dry and intact. Patient understands if any questions or concerns may contact the office.
--- NOTE | 2025-01-14 09:40 | ANE.PACU2 ---
Inpatient post-anesthesia follow up: Airway intact: Yes Vital signs: Temperature 97.8 F Pulse Rate 68 Respiratory Rate 18 Blood Pressure 126/76 Pulse Oximetry 94 Oxygen Delivery Me thod Room Air Oxygen Flow Rate Fraction of Inspir ed Oxygen Hydration adequate: Yes Nausea and vomiting: No Pain level: 1 Mental status: Baseline
== END 2025-01-14 09:40 | disposition home or self-care (01) ==
PROVIDERS: PCP Family Medicine; Visit Provider Student in an Organized Health Care Education/Training Program
PROC: (CPT 64721; principal; 2025-01-14 08:00)
DX: G56.01 Carpal tunnel syndrome, right upper limb (principal); I10 Essential (primary) hypertension; J44.9 Chronic obstructive pulmonary disease, unspecified; K21.9 Gastro-esophageal reflux disease without esophagitis
CPT/HCPCS: 64721; J0131; J0690; J1885; J2250; J2704; J2795; J3010; J7030; J9999

== ENCOUNTER → 2025-01-29 10:07 | Outpatient (BNVA) | payer OTHER, SELFPAY | PROVIDERS: PCP Family Medicine; Visit Provider Physician Assistant | DX: Z98.890 Other specified postprocedural states (principal) | CPT/HCPCS: 99024 ==